=== PATIENT | male | born 1995 | race African-American/Black ===

== ENCOUNTER 2017-08-26 10:43 | Emergency (ER) | payer OTHER ==
[2017-08-26 10:48] VITALS: RESP 18
--- NOTE | 2017-08-26 11:38 | XR ---
EXAMINATION TYPE: XR hand complete RT DATE OF EXAM: 08/26/2017 COMPARISON: NONE HISTORY: 22-year-old male third, fourth, and fifth metacarpal pain after punching door TECHNIQUE: 3 views FINDINGS: There is a tiny cortical step-off along the radial palmar aspect of the fifth metacarpal neck. No add itional acute fracture, subluxation, or dislocation is seen. IMPRESSION: Tiny step off along the radial palmar aspect of the fifth metacarpal neck suggests a subtle cortical or incomplete fracture. Correlate for focal pain here.
--- NOTE | 2017-08-26 12:50 | ED ---
Upper Extremity HPI - General Chief Complaint: Extremity Injury, Upper Stated Complaint: rt hand knuckle injury Time Seen by Provider: 08/26/17 10:52 Source: patient Mode of arrival: ambulatory Limitations: no limitations - History of Present Illness Initial Comments: 22 years old male, he punched the door yesterday is complaining about pain in the right hand, pain is more most intense with base of the first finger. He still able to move his fingers. No other injuries are he does have a history of old injury to the same area. Her system is absolutely unremarkable otherwise - Related Data Home Medications Medication Instructions Recorded Confirmed No Known Home Medications [No 08/26/17 08/26/17 Known Home Medications] Allergies Allergy/AdvReac Type Severity Reaction Status Date / Time No Known Allergies Allergy Verified 08/26/17 11:21 Review of Systems ROS Statement: Those systems with pertinent positive or pertinent negative responses have been documented in the HPI. ROS Other: All systems not noted in ROS Statement are negative. Past Medical History Past Medical History: No Reported History Additional Past Medical History / Comment(s): Scoliosis History of Any Multi-Drug Resistant Organisms: None Reported Past Surgical History: No Surgical Hx Reported Past Psychological History: No Psychological Hx Reported Smoking Status: Current every day smoker Past Alcohol Use History: Occasional Past Drug Use History: Marijuana - Past Family History Father Family Medical History: No Reported History Additional Family Medical History / Comment(s): Father is alive at age 49 with no major medical problems. Mother Family Medical History: No Reported History Additional Family Medical History / Comment(s): Mother is alive at age 50 with history of bipolar. Brother(s) Additional Family Medical History / Comment(s): He has 2 brothers and one has bipolar. He has 3 sisters and one has bipolar. He has no children. General Exam - General Exam Comments Initial Comments: General: The patient is awake and alert, in no distress, and does not appear acutely ill. Skin: Skin is warm and dry and no rashes or lesions are noted. Eye: Pupils are equal, round and reactive to light, extra-ocular movements are intact; there is normal conjunctiva bilaterally. Ears, nose, mouth and throat: There are moist mucous membranes and no oral lesions. Neck: The neck is supple, there is no tenderness or JVD. Cardiovascular: There is a regular rate and rhythm. No murmur, rub or gallop is appreciated. Respiratory: To auscultation bilateral, no wheezing no rhonchi no distress respiratory vargas noticed Gastrointestinal: Soft, non-distended, non-tender abdomen without masses or organomegaly noted. There is no rebound or guarding present. Bowel sounds are unremarkable. Back: There is no tenderness to palpation in the midline. There is no obvious deformity. Musculoskeletal: tender at the distal end of the fifth metacarpal bone, range of motion is slightly decreased S/flexion is concerned, he still able to make a fist, no neurovascular compromise noticed. Refill is within normal range Neurological: CN II-XII intact, Cranial nerves III through XII are intact. There are no obvious motor or sensory deficits. Coordination appears grossly intact. Speech is normal. Psychiatric: Cooperative, appropriate mood & affect, normal judgment. Limitations: no limitations Course Vital Signs 08/26/17 10:45 Temperature 97.7 F Pulse Rate 78 Respiratory 18 Rate Blood Pressure 141/81 O2 Sat by Pulse 97 Oximetry Ulnar gutter splint was applied in the ER Disposition Clinical Impression: Boxers fracture Disposition: HOME SELF-CARE Condition: Good Instructions: Hand Fracture (ED) Additional Instructions: keep hand elevated and use Tylenol or Motrin as needed and see Dr. Chavarria for follow-up Referrals: None,Stated [Primary Care Provider] - 1-2 days Shar Chavarria MD [STAFF PHYSICIAN] - 1-2 days
[2017-08-26 13:04] VITALS: BP 138/88; PULSE 67; TEMP 98
== END 2017-08-26 13:08 | disposition home or self-care (01) ==
LOC: EC 10:43
DX: S62.336A Displaced fracture of neck of fifth metacarpal bone, right hand, initial encounter for closed fracture (principal); F17.200 Nicotine dependence, unspecified, uncomplicated; W22.09XA Striking against other stationary object, initial encounter
CPT/HCPCS: 29125; 99283